=== PATIENT | male | born 1960 | race Two or more races ===

== ENCOUNTER 2019-12-11 19:22 | Emergency (ER) | payer MEDICAID ==
[~2019-12-11] VITALS: Ht 182.9 cm; Wt 83.9 kg
[~2019-12-11 19:22] MED LIST: IBUPROFEN800 MG ORAL; NAPROSYN500 M1 ORAL; NKM; NORCO 5-325 TA1 EACH ORAL; TRAMADOL HCL50 MG ORAL; ZOFRAN ODT4 MG ORAL
[2019-12-11 19:32] VITALS: BP 152/95
--- NOTE | 2019-12-11 19:32 | NUR ---
ED Nurse Note: Pt ambulated into ED from home CO pain in right pelvis with noticeable lump. Pt reports pain 7/10 when changing position/ADLs. Pt states that discomfort started over a week ago. Pt denies lifting heavy objects or do heavy exercises when symptoms began. Pt denies f/n/v or difficulty voiding bladder or bowels. Pt denies any bleeding. Awaiting ERMD at bedside. UA sent to lab
--- NOTE | 2019-12-11 19:40 | NUR ---
ED Nurse Note: ERMD at bedside
--- NOTE | 2019-12-11 19:52 | Emergency Room Report ---
History of Present Illness General Chief Complaint: Pelvic Pain Source: Patient Present Illness HPI 58-year-old male presents with right groin pain intermittently he notices a bump that pops out he noticed after lifting something heavy he endorses intermittent pain that comes and goes, no fevers no chills no obstructive symptoms patient is able to defecate, he states the ball reduces on its own at times patient presents for evaluation from his PCP because his PCP is currently out of the office Allergies: Coded Allergies: No Known Allergies (Unverified , 11/18/14) Patient History Past Medical History: see triage record Social History: Reports: smoking Reviewed Nursing Documentation: PMH: Agreed; PSxH: Agreed Nursing Documentation-PMH Past Medical History: No Stated History Review of Systems All Other Systems: negative except mentioned in HPI Physical Exam Vital Signs Date Time Temp Pulse Resp B/P (MAP) Pulse Ox O2 Delivery O2 Flow Rate FiO2 12/11/19 19:27 98.1 70 16 152/103 (119) 97 Room Air General Appearance: well appearing, no apparent distress Head: normocephalic, atraumatic ENT: hearing grossly normal, normal voice Neck: full range of motion, supple Respiratory: no respiratory distress, speaking full sentences Gastrointestinal: non tender, soft, hernia - Adina Aranda, RN volunteer assistant, right inguinal hernia reducible no tenderness Neurologic: alert, normal gait Psychiatric: mood/affect normal Skin: no rash Medical Decision Making Diagnostic Impression: Primary Impression: Right groin hernia ER Course 58-year-old male presents with right inguinal hernia reducible, no evidence of obstruction no evidence of incarceration or strangulation Counseled patient to follow-up with surgery disposition home with return precautions Last Vital Signs Date Time Temp Pulse Resp B/P (MAP) Pulse Ox O2 Delivery O2 Flow Rate FiO2 12/11/19 19:27 98.1 70 16 152/103 (119) 97 Room Air Disposition: HOME, SELF-CARE Condition: Stable Referrals: [facility] Patient Instructions: Hernia, Adult, [id number] Additional Instructions: The patient was provided with discharge instructions, notified to follow-up with a primary care doctor and or specialist in the next 24-48 hours, and to return to the ED if they have worsening of their symptoms. Please note that this report is being documented using DRAGON technology. This can lead to erroneous entry secondary to incorrect interpretation by the dictating instrument. Aquiles Terry MD Dec 11, 2019 19:52
[2019-12-11 19:55] VITALS: BP 134/96
--- NOTE | 2019-12-11 19:55 | NUR ---
ER DISCHARGE NOTE: Patient is cleared to be discharged per ERMD, pt is aox4, on room air, with stable vital signs. accompanied by family member. pt was given dc and prescription instructions, pt was able to verbalize understanding, pt id band removed. pt is able to ambulate with steady gait. pt took all belongings.
== END 2019-12-11 20:10 | disposition home or self-care (01) ==
LOC: EMR 20:06
DX: K40.90 Unilateral inguinal hernia, without obstruction or gangrene, not specified as recurrent (principal); F17.200 Nicotine dependence, unspecified, uncomplicated
CPT/HCPCS: 99281